=== PATIENT | male | born 1960 | race Caucasian/White ===

== ENCOUNTER 2016-08-22 09:41 | Emergency (ER) | payer MEDICAID ==
--- NOTE | 2016-08-22 10:10 | Emergency Department Record ---
History of Present Illness - General Chief Complaint: Headache Migraine Stated Complaint: HEADACHE/DIZZY Time Seen by Provider: 08/22/16 10:10 Source: Patient Mode of Arrival: Ambulatory Limitations: No limitations - History of Present Illness Initial Comments: The patient is here due to mild neck aching and a mild SAHA for the last week. The onset was gradual and is not associated with any blurred vision, arm or leg numbness, tingling or weakness. The onset of the pain was gradual. He did run out of his BP medicines 2 months ago and feels like his BP is elevated and that could be causing the pain. The patient denies any CP, SOB, IDA, or sweating but has had a very mild "funny feeling" in his chest at times. The feeling is not exertional and does not get better or worse with any activity. There is no discomfort at this time. MD Complaint: Headache Onset/Timin -: Week(s) Location: Neck, Occipital Severity: Mild Severity scale (1-10): 3 Quality: Aching Consistency: Constant Improves With: Nothing Worsens With: Movement of head/neck Context: Other Other Symptoms: Other (The patient has had a funny feeling in his chest but not pain. Presently there is no discomfort.) Treatments Prior to Arrival: None - Related Data Home Medications Medication Instructions Recorded Confirmed Last Taken Aspirin [Adult Low Dose Aspirin EC] 81 mg PO DAILY 08/22/16 08/22/16 08/22/16 Atorvastatin Calcium [Lipitor] 10 mg PO DAILY 08/22/16 08/22/16 Unknown Clopidogrel Bisulfate [Clopidogrel] 75 mg PO DAILY 08/22/16 08/22/16 Unknown Famotidine [Pepcid] 20 mg PO BID 08/22/16 08/22/16 Unknown Losartan Potassium [Cozaar] 50 mg PO DAILY 08/22/16 08/22/16 Unknown Metoprolol Tartrate [Lopressor] 25 mg PO Q12H 08/22/16 08/22/16 Unknown Previous Rx's Medication Instructions Recorded Losartan Potassium [Cozaar] 50 mg PO DAILY #15 tablet 08/22/16 Metoprolol Tartrate [Lopressor] 25 mg PO Q12H #30 tab 08/22/16 Allergies Allergy/AdvReac Type Severity Reaction Status Date / Time No Known Drug Allergies Allergy Verified 08/22/16 10:11 Travel Screening - Travel/Exposure Within Last 30 Days Have you traveled within the last 30 days?: No - Travel/Exposure Within Last Year Have you traveled outside the [place] in the last year?: No - Additonal Travel Details Have you been exposed to anyone with a communicable illness?: No - Travel Symptoms Symptom Screening: None Review of Systems Constitutional: Denies: Chills, Fever Eyes: Denies: Eye discharge ENT: Denies: Congestion Respiratory: Denies: Cough, Dyspnea Past Medical History - SOCIAL HISTORY Smoking Status: Current every day smoker Alcohol Use: Occassional Drug Use: None - RESPIRATORY Hx Respiratory Disorders: No - CARDIOVASCULAR Hx Cardio Disorders: Yes Hx Heart Attack: Yes Hx Hypertension: Yes - NEURO Hx Neuro Disorders: Yes Comment:: TBI - GI Hx GI Disorders: Yes Hx Reflux: Yes - Hx Genitourinary Disorders: No - ENDOCRINE Hx Endocrine Disorders: No - MUSCULOSKELETAL Hx Musculoskeletal Disorders: No - PSYCH Hx Psych Problems: No - HEMATOLOGY/ONCOLOGY Hx Hematology/Oncology Disorders: No Family Medical History Any Significant Family History?: No Physical Exam - General General Appearance: Alert, Oriented x3, Cooperative, No acute distress - Head Head exam: Atraumatic, Normocephalic, Normal inspection - Eye Eye exam: Normal appearance, PERRL - Neck Neck exam: Normal inspection, Full ROM. negative: Tenderness - Respiratory Respiratory exam: Normal lung sounds bilaterally. negative: Respiratory distress - Cardiovascular Cardiovascular Exam: Regular rate, Normal rhythm, Normal heart sounds - GI/Abdominal GI/Abdominal exam: Soft, Normal bowel sounds. negative: Tenderness - Extremities Extremities exam: Normal inspection, Full ROM, Normal capillary refill. negative: Tenderness - Neurological Neurological exam: Alert, Normal gait. negative: Abnormal gait, Motor sensory deficit Course Vital Signs 08/22/16 09:55 Temperature 98.4 F Pulse Rate 105 H Respiratory 20 Rate Blood Pressure 186/108 Pulse Ox 98 - Reevaluation(s) Reevaluation #1: The patient is doing much better. His SAHA has resolved and his BP is much improved. He has no CP, SOB or IDA and feels ready for home. I did explain to the patient the need for further evaluation with a PCP and the patient will F/U. 08/22/16 12:09 Medical Decision Making - Data Complexity MDM Data: Labs Ordered and/or Reviewed, EKG Ordered and/or Reviewed - Lab Data Result diagrams: 08/22/16 11:15 08/22/16 11:15 - EKG Data -: EKG Interpreted by Me EKG: No Acute Changes, Normal EKG Disposition Disposition: Discharge Clinical Impression: Hypertension Qualifiers: Hypertension type: essential hypertension Qualified Code(s): I10 - Essential ( primary) hypertension Disposition: Home, Self-Care Condition: (1) Good Instructions: Hypertension (ED) Additional Instructions: Please restart your BP medicines and take an Aspirin daily. Please see a family doctor next week for recheck. Return to the ER for any pain, high blood pressure or trouble breathing. Prescriptions: Losartan Potassium [Cozaar] 50 mg PO DAILY #15 tablet Metoprolol Tartrate [Lopressor] 25 mg PO Q12H #30 tab Forms: Patient Portal Access Time of Disposition: 12:13
[2016-08-22] MEDS ORDERED: ACETAMINOPHEN 325 MG TAB PO ONE (10:15)
[2016-08-22] MEDS ORDERED: METOPROLOL TART 25 MG TABLET PO ONE (10:16)
[2016-08-22 11:29] LABS: BASO % 0.8 % (0-6); EOS % 3.7 % (0-6); GRAN % 62.5 % (47-80); HEMATOCRIT 50.1 % (42.0-52.0); HEMOGLOBIN 16.9 gm/dl (14.0-18.0); LYMPH % 23.9 % (16-45); MEAN CELL VOLUME 89.8 fl (81-97); MEAN CORPUSCULAR HEMOGLOBIN 30.3 pg (27-33); MEAN CORPUSCULAR HGB CONC 33.7 g/dl (32-36); MEAN PLATELET VOLUME 10.4 fl (7.4-10.4); MONO % 9.1 % (0-9); PLATELET COUNT 248 K/uL (130-400); RED BLOOD COUNT 5.58 M/uL (4.40-5.70); RED CELL DISTRIBUTION WIDTH 13.3 % (11.5-14.5); WHITE BLOOD COUNT W/O DIFF 4.9 K/uL (4.2-12.2)
[2016-08-22 11:41] LABS: ANION GAP 9.8 (7-16); BLOOD UREA NITROGEN 17 mg/dL (9-20); CARBON DIOXIDE 28.2 mmol/L (22-30); CREATINE PHOSPHOKINASE 168 U/L (55-170); CREATININE 0.9 mg/dL (0.66-1.25); EST GLOMERULAR FILTRATION RATE > 60 ml/min; GLUCOSE,RANDOM 129 mg/dL (70-110)
[2016-08-22 11:53] LABS: CKMB 2.7 ug/L (0-6); TROPONIN I 0.012 ng/mL (0.00-0.034)
== END 2016-08-22 12:27 | disposition home or self-care (01) ==
LOC: ER 09:41
DX: I10 Essential (primary) hypertension (principal); M54.2 Cervicalgia; R07.89 Other chest pain; R51 Headache; R42 Dizziness and giddiness; F17.210 Nicotine dependence, cigarettes, uncomplicated
CPT/HCPCS: 80048; 82550; 82553; 84484; 85025; 93005; 93010; 99284